=== PATIENT | female | born 1985 | race African-American/Black ===

== ENCOUNTER 2023-10-21 11:40 | Outpatient (REF) | payer MEDICAID, OTHER, SELFPAY ==
[2023-10-21 13:46] LABS: Hemoglobin 11.4 g/dl (12.0-16.0); Mean Corpuscular HGB Conc 32.6 g/dl (31.0-35.0); Mean Corpuscular Hemoglobin 27.5 pg (27.0-33.0); Mean Corpuscular Volume 84.3 fL (80.0-98.0); Mean Platelet Volume 11.1 fL (9.4-12.3); Platelet Count 277 X10*3/uL (160-400); Red Blood Count 4.15 X10*6/uL (4.20-5.50); Red Cell Distribution Width 13.1 % (11.0-16.0); White Blood Count 4.8 X10*3/uL (4.8-10.8)
[2023-10-21 14:25] LABS: Alanine Aminotransferase 9 U/L (0-31); Albumin Level 4.1 g/dL (3.5-5.0); Alkaline Phosphatase 118 U/L (39-117); Aspartate Amino Transferase 14 U/L (5-31); Bilirubin Direct 0.1 mg/dL (0.0-0.5); Bilirubin Total 0.3 mg/dL (0.0-1.0); Total Protein 7.4 g/dL (6.5-8.0)
[2023-10-21 14:41] LABS: TSH reflex Free T4 1.95 uIU/mL (0.32-4.0)
[2023-10-22 12:58] LABS: Immunoglobulin A 248 mg/dL (47-310)
[2023-10-23 21:07] LABS: Transglutaminase IgA <1.0 U/mL
== END 2023-10-21 11:41 | disposition home or self-care (01) ==
LOC: HO.LAB 11:40
PROVIDERS: PCP Nurse Practitioner Family; Visit Provider Internal Medicine
DX: R10.11 Right upper quadrant pain (principal)
CPT/HCPCS: 36415; 80076; 82784; 84443; 85027; 86364

== ENCOUNTER 2023-10-21 11:40 | Outpatient (AMB) | payer OTHER, SELFPAY ==
--- NOTE | 2023-10-21 11:43 | A.OFFVIS_ITS ---
Vital Signs 10/21/23 11:53 Height 5 ft 4 in Weight 160 lb 7.944 oz BMI 27.5 BP 112/80 Blood Pressure Location Lt brachial Position Sitting Pulse 82 Pulse Source Pulse Oximeter Pulse Oximetry (%) 99 Oxygen Delivery Method Room Air Intake Visit Reasons: Lower Abdominal Pains Intake Note: Susie presents in office today for a scheduled initial assessment. CC; Pt reports experiencing lower abdominal pain. Pt reports onset approximately 2 years. Pt reports that their pain is intermittent and idiopathic in nature. Pt denies any additional sx beyond the abdominal pain. Pharmacy Operations Coordinator Required: Yes Pharmacy Operations Coordinator Name: [id number] Feng Accompanied by: Self / Same As Patient Allergies No Known Allergies Allergy (Verified 10/21/23 11:53) HPI Comments Details: 38 y.o F with PMH of who is here for chest pain . Reports started almost 2 years ago. Has had 2 ER visits since Feb. Reports that has 2 distinct complaints. Has sensation of something lodged in the upper throat. This comes and goes, worse with eating food. Sometimes has heartburn with this. In addition, also reports chest pain which she says is present most of the days. Assoc with sensation of difficulty breathing. Unable to identify trigger, goes away on its own when she rests/sits still after an hour. [facility] Medical History (Updated 03/04/24 @ 14:01 by Evelia Salcido RN) Chest pain GERD (gastroesophageal reflux disease) Surgical History (Updated 03/04/24 @ 14:01 by Evelia Salcido RN) Surgical history unknown Family History (Updated 01/25/24 @ 13:37 by Susi Ruiz) Mother No problems noted. Father No problems noted. Social History Are you a primary career development manager to a significant other at home: No Do you presently have visiting nurse or other home services: No Alcohol intake: never Patient Tobacco Use Status: Never used Tobacco Have you been hit, kicked, punched, or otherwise hurt by someone within the past year? If so, by whom?: No Are you DNR?: No Advance Directives: No Advance Directives Information Provided: Yes Recently lost weight without trying: No Nutrition Risks: No Nutritional Risk FDLMP: 02/12/24 Review of Systems Const All systems reviewed & are unremarkable except as noted in HPI and below Physical Exam Vital Signs: Last Vital Signs Pulse 82 10/21/23 11:53 BP 112/80 10/21/23 11:53 Pulse Ox 99 10/21/23 11:53 Oxygen Delivery Method Room Air 10/21/23 11:53 BMI result Body Mass Index 27.5 No apparent distress Nonicteric Abdomen soft, nondistended Alert and oriented x3, normal gait Assessment & Plan Assessment & Plan (1) Postprandial RUQ pain: Code(s): R10.11 - Right upper quadrant pain Category: Medical (2) Shortness of breath: Code(s): R06.02 - Shortness of breath Category: Medical (3) Chest pain: Code(s): R07.9 - Chest pain, unspecified Category: Medical Plan Overall reports two distinct pains - RUQ and epigastric pain as well as chest pain. The chest pain sounds atypical for intraluminal pathology and would recommend cardiac w/up first before proceeding with EGD robson as its triggered by activity and has shortness of breath with it. Ddx for abd pain include PUD, gastritis, celiac, hyperthyroidism, gallstones. Plan: - Labs and US as below - EGD to be set up AFTER pt has been seen by cardiology for atypical chest pain - Start nexium 20 mg BID Follow up after EGD Orders: Orders Liver Panel 10/21/23 R10.11 - Right upper quadrant pain Complete Blood Count no Diff 10/21/23 R10.11 - Right upper quadrant pain TSH reflex Free T4 10/21/23 R10.11 - Right upper quadrant pain Transglutaminase IgA 10/21/23 R10.11 - Right upper quadrant pain Immunoglobulin A 10/21/23 R10.11 - Right upper quadrant pain US abdomen complete 10/21/23 R10.11 - Right upper quadrant pain Referrals Cardiology Referral R07.9 - Chest pain, unspecified, R06.02 - Shortness of breath Medications: New esomeprazole magnesium 20 mg PO BID 60 caps 1RF GERD 30 days Coding Level of Care Code New Pt Level 4 (72545) Diagnoses Postprandial RUQ pain R10.11 Shortness of breath R06.02 Chest pain R07.9
[2023-10-21 11:53] VITALS: BP 112/80; PULSE 82; O2SAT 99; BMI 27.5
== END 2023-10-21 12:31 | disposition home or self-care (01) ==
PROVIDERS: PCP Nurse Practitioner Family; Visit Provider Internal Medicine
DX: R10.11 Right upper quadrant pain (principal); R06.02 Shortness of breath; R07.9 Chest pain, unspecified
CPT/HCPCS: 99499

== ENCOUNTER 2023-11-19 09:40 | Outpatient (REF) | payer OTHER, SELFPAY ==
--- NOTE | ~2023-11-19 | US_ITS ---
EXAMINATION: US ABDOMEN COMPLETE CLINICAL INFORMATION: Right upper quadrant pain. COMPARISON: None available. TECHNIQUE: Real-time imaging of the abdominal viscera. FINDINGS: PANCREAS: Normal. ABDOMINAL AORTA: The proximal, mid, and distal segments are normal in caliber. INFERIOR VENA CAVA: Visualized portions are normal. LIVER: The liver is normal in size. The liver contour is normal. There is mildly increased liver parenchymal echogenicity, consistent with hepatic steatosis. No focal hepatic lesion. There is no intrahepatic biliary duct dilatation seen. GALLBLADDER: The gallbladder is physiologically distended without evidence of stones, sludge, wall thickening or pericholecystic fluid. A 2 mm gallbladder polyp is noted. COMMON BILE DUCT: Normal in caliber measuring 0.2 cm in diameter. RIGHT KIDNEY: Normal. No hydronephrosis. No renal calculi or focal parenchymal lesions. The kidney measures 10.5 cm in maximum dimension. LEFT KIDNEY: Normal. No hydronephrosis. No renal calculi or focal parenchymal lesions. The kidney measures 10.2 cm in maximum dimension. SPLEEN: Normal. The spleen measures 8.5 cm in maximum dimension. FREE FLUID: None. US/US abdomen complete IMPRESSION: 1. A cause for the patient's right upper quadrant pain has not been found. 2. Incidental note made of a 2 mm gallbladder polyp and mild hepatic steatosis. Follow-up recommendations for gallbladder polyps depend on the size of the polyp, the patient's risk factors, and the polyp's appearance: 5 mm or less: If the patient has no risk factors for malignancy, follow-up is recommended at 1, 3, and 5 years. If the patient has risk factors for malignancy, follow-up is recommended at 6 months, 1 year, and 2 years. 6-9 mm: If the patient has no risk factors for malignancy, follow-up is recommended at 6 months, 1 year, and then yearly up to 5 years. 10-14 mm: Follow-up ultrasound is recommended at 6, 12, and 24 months. 15 mm or larger: Surgical consultation is recommended. (from Society of Radiologists in Ultrasound Consensus Conference Recommendations 2021) Electronically signed by: Ferny Kern MD 01/07/2024 01:11 PM [facility]
== END 2023-11-19 09:41 | disposition home or self-care (01) ==
LOC: HO.US 09:40
PROVIDERS: Visit Provider Internal Medicine
DX: R10.11 Right upper quadrant pain (principal)
CPT/HCPCS: 76700

== ENCOUNTER 2024-01-25 11:58 | Outpatient (AMB) | payer OTHER, SELFPAY ==
--- NOTE | 2024-01-25 13:16 | A.OFFVIS_ITS ---
Vital Signs 01/25/24 13:17 Height 5 ft 4 in Weight 154 lb 5.177 oz BMI 26.5 BP 110/60 Blood Pressure Location Lt brachial Position Sitting Pulse 67 Pulse Source Monitor Intake Visit Reasons: new patient pre-op clearance egd dx chest pain Intake Note: CIPRIANO [id number] Program Aide Group Work Required: Yes Program Aide Group Work Name: CIPRIANO Allergies No Known Allergies Allergy (Verified 10/21/23 11:53) Medication List - Last Reconciled 01/25/24 by Tip Ridley MD esomeprazole magnesium 20 mg PO BID 30 days HPI Comments Details: Susie is here for consultation regarding chest pains. She does not have any previous history of coronary disease or myocardial infarction or cardiomyopathy or in fact any other cardiac issues. Discussed with patient using water taxi operator. However, it seems she also speaks Creole. Any case, she understood the conversation very well. She describes a pain/discomfort in the substernal area. Can happen any time. With and without exertion. However, when I repeatedly asked her, she describes different things including sometimes worse with activity but she also has some discomfort when I touch the area and hence variable description. She has also seen GI for possible esophageal cause for this discomfort and it seems there is a pending plan for endoscopy. She has started esomeprazole but no improvement in symptoms. [facility] Medical History GERD (gastroesophageal reflux disease) Family History (Updated 01/25/24 @ 13:37 by Susi Ruiz) Mother No problems noted. Father No problems noted. Social History Alcohol intake: never Patient Tobacco Use Status: Never used Tobacco Review of Systems Const Denies weakness ENT Denies dizziness Card Reports chest pain, Denies chest pain with activity, Denies syncope, Denies rapid heart rate, Denies pedal edema, Denies edema, Denies leg edema, Denies lightheadedness, Reports palpitations, Denies dyspnea, Denies dyspnea on exertion and Denies orthopnea Resp Denies cough, Denies dyspnea and Denies dyspnea on exertion GI Denies hematochezia and Denies change in stool character Musc Denies abnormal gait, Denies muscle cramps, Denies muscle weakness, Denies numbness, Denies radiating pain into limb and Denies tingling Neuro Denies abnormal gait, Denies dizziness, Denies syncope, Denies numbness, Denies tingling and Denies weakness Endo Reports palpitations Physical Exam Vital Signs: Last Vital Signs Pulse 67 01/25/24 13:17 BP 110/60 01/25/24 13:17 BMI result Body Mass Index 26.5 Const General: comfortable and no acute distress Orientation/consciousness: patient oriented x3 HEENT Other: Unremarkable Head: Yes normal to inspection Neck Neck: Yes normal visual inspection Chest Chest palpation & inspection: normal inspection of the chest Resp Auscultation: clear to auscultation bilaterally Cardio Palpation: normal PMI Heart sounds: S1 normal heart sound present, S2 normal heart sound present, no gallops, no murmurs and no rubs GI Palpation (GI): Soft to palpation Back/Spine/Pelvis Other: unremarkable Skin General skin exam: no rashes or lesions noted Neuro General: patient oriented x3 Extrem General: Yes normal to inspection Psych Mental Status: mental status grossly normal Office Procedures EKG Details: EKG with underlying sinus rhythm at 67/Min; no significant ST-T changes and otherwise unremark[place] [id number], Complete Assessment & Plan Assessment & Plan (1) Chest pain: Code(s): R07.9 - Chest pain, unspecified Category: Medical Plan Overall, chest pain of variable description, sometimes exertional and overall atypical. Baseline EKGs unremarkable. Available high sensitivity troponins are within normal limits. We will get an echocardiogram and exercise stress test for further evaluation. Can make an addendum once these are reviewed. Orders: Orders CA echo transthoracic complete Today R07.9 - Chest pain, unspecified CA stress test Today R07.9 - Chest pain, unspecified Coding Level of Care Code New Pt Level 4 (54156) Diagnoses Chest pain R07.9 CPT Codes EKG - CPT: 46451-[id number], Complete ([id number])
[2024-01-25 13:17] VITALS: BP 110/60; PULSE 67; BMI 26.5
== END 2024-01-25 13:49 | disposition home or self-care (01) ==
PROVIDERS: PCP Nurse Practitioner Family; Visit Provider Internal Medicine
DX: R07.9 Chest pain, unspecified (principal)
CPT/HCPCS: 93010; 99204

== ENCOUNTER → 2024-01-25 11:58 | Outpatient (BNVA) | payer OTHER, SELFPAY | PROVIDERS: PCP Nurse Practitioner Family; Visit Provider Internal Medicine | DX: Z01.818 Encounter for other preprocedural examination (principal); R07.9 Chest pain, unspecified | CPT/HCPCS: 93005 ==

== ENCOUNTER → 2024-02-15 08:08 | Outpatient (REF) | payer OTHER, SELFPAY ==
--- NOTE | 2024-02-15 08:11 | CA_ITS ---
Acquisition Time: 2024-02-15 09:04:25 Total Exercise Time: 00:08:14 Test Indications: CP Medications: ESOMEPRAZOLE Protocol: ALLEGRA Max HR: 155 BPM 85% of Pred: 182 BPM Max BP: 152/080 mmHG Max Work Load: 9.6 METS Exercise Stress Test with exercise 8 mins 14 secs of Allegra Protocol, initially held at Stage 1 due to trouble walking on the treadmill, able to slowly increase incline to 14% and speed to 3.2mph, achieving 85% MPHR, with reports of moderate SOB, no chest discomfort, without any arrythmias, with normotensive response to exercise. Without EKG changes meeting criteria for ischemia. In recovery, breathing returned to baseline. Test reviewed with Dr. Johnson. Referred By: Tip Ridley Overread By: Milad Dunn
--- NOTE | 2024-02-15 08:11 | CA_ITS ---
Transthoracic Echocardiogram Patient (Last, First, Middle): Susie Ward, Gender: Female Date of : 1985 Age: 38 Procedure Date: 02/15/2024 Procedure Type: Transthoracic Echocardiogram Location: OP Height: 160.02 cm Weight: 76.66 kg BSA: 1.80 m2 Heart Rate: bpm BP: 110 / 60 mmHg Lna: TIO Referring MD: Tip Ridley MD Symptoms: R07.9 - Chest pain, unspecified Study Quality: Adequate ECG Rhythm: Sinus Conclusions: - The left ventricular systolic function is normal. The calculated ejection fraction is 69% by biplane method. - No obvious valvular pathology seen on this study. Findings Left Ventricle Normal left ventricular cavity size. There is normal left ventricular wall thickness. The left ventricular systolic function is normal. The calculated ejection fraction is 69% by biplane method. There is no evidence of regional wall motion abnormalities. Diastolic function is normal for age. LV peak GLS -21.3%. Right Ventricle Normal right ventricular cavity size and systolic function. Atria Both atria are normal in size. Aortic Valve There is a normal trileaflet aortic valve. There is no aortic valve stenosis. There is no aortic valve regurgitation. Mitral Valve The mitral valve appears normal. There is trace mitral valve regurgitation. There is no mitral valve stenosis. Pulmonic Valve The pulmonic valve is likely normal. Tricuspid Valve Normal tricuspid valve structure. There is trace tricuspid valve regurgitation. There is no evidence of pulmonary hypertension. Great Vessels The asc aorta is normal in size. Venous The inferior vena cava is normal in size and collapses greater than 50% with inspiration. Pericardium/Pleural There is no evidence of pericardial effusion. Prior Study Comparison No prior study available for comparison. Recommendations, Care & Conclusions No obvious valvular pathology seen on this study. Measurements 2D Linear Measurements IVSd: 0.77 0.6-0.9/0.6-1.0 cm LVIDd: 4.40 3.9-5.3/4.2-5.9 cm LVIDd Index: 2.44 2.4-3.2/2.2-3.1 cm/m2 LVIDs: 3.01 2.0-3.6 cm LVPWd: 0.80 0.7-1.1 cm LA Diam: 2.80 2.7-3.8/3.0-4.0 cm LAIDs Index: 1.56 1.5-2.3 cm/m2 LV Mass: 133.25 67-162/88-224 g LV Mass Index: 74.03 43-95/49-115 g/m2 LVOT Diam: 1.80 3.0+(-)1.3 cm 2D Systolic Function EF 4C: 67.70 >55% EF 2C: 66.00 >55% EF BiP: 69.20 >55% Mitral Valve MV Pk E: 0.79 MV PK A: 0.62 MV Decel Time: 256.00 E/A: 1.30 E'Lateral: 13.40 E'Medial: 9.03 E/E' Med: 8.70 E/E' Lat: 5.90 PHT: 75.00 MVA PHT: 2.93 Decel Providence: 3.08 Aortic Valve AoV Pk Fletcher: 1.52 AoV Mn Fletcher: 1.02 AoV VTI: 0.33 AoV Pk Grad: 9.00 Aov Mn Grad: 5.00 GIGI Cont.VTI: 1.90 LVOT LVOT Pk Fletcher: 1.10 LVOT Mn Fletcher: 0.75 LVOT VTI: 0.25 LVOT Pk Grad: 5.00 LVOT Mn Grad: 3.00 LVOT Diam: 1.80 LVOT Area: 2.54 Diastolic Function MV Pk E: 0.79 MV Pk A: 0.62 E/A: 1.30 E'Medial: 9.03 E/E' Med: 8.70 E' Laterial: 13.40 E/E' Lat: 5.90 Right Ventricle TAPSE (mm): 20.40 TVS' Fletcher: 12.50 Tricuspid Valve TR Pk Fletcher: 1.62 TR Pk Grad: 10.00 RA Press: 3.00 RVSP: 13.00 Great Vessels Aorta Sinus of Valsalva: 2.31 2.0-3.[address] Ridge: 1.98 1.7-3.4 cm Ao Asc: 2.30 2.1-3.4 cm Updated in Other Vendor System with Status of Final Tip Ridley MD electronically signed on 02/15/2024 9:19:31 AM with status of Final
== END ==
LOC: HO.CARD 08:08
PROVIDERS: PCP Nurse Practitioner Family; Visit Provider Internal Medicine
DX: R07.9 Chest pain, unspecified (principal)
CPT/HCPCS: 93017; 93306; 93356

== ENCOUNTER → 2024-02-15 08:11 | Outpatient (BNV) | payer OTHER, SELFPAY | PROVIDERS: PCP Nurse Practitioner Family; Visit Provider Internal Medicine | DX: R06.02 Shortness of breath (principal) | CPT/HCPCS: 93016; 93018; 93320; 93325; 93350; 93356 ==

== ENCOUNTER 2024-03-08 08:34 | Day surgery (SDC) | payer OTHER, SELFPAY ==
[2024-03-04 14:00] VITALS: BMI 26.4
--- NOTE | 2024-03-07 11:40 | HO.ANESPROP2 ---
HPI - Anesthesia Eval Consult details Narrative: 38yo F for Upper Endoscopy PMFSH Active Problems Active Problems: All Active Problems Postprandial RUQ pain (Acute) Shortness of breath (Acute) Chest pain (Acute) Past Medical History Medical History (Updated 03/04/24 @ 14:01 by Evelia Salcido RN) Chest pain GERD (gastroesophageal reflux disease) Family History Family History (Updated 01/25/24 @ 13:37 by Susi Ruiz) Mother No problems noted. Father No problems noted. Surgical History Surgical History (Updated 03/04/24 @ 14:01 by Evelia Salcido RN) Surgical history unknown Social History Social History Alcohol intake: never Patient Tobacco Use Status: Never used Tobacco Meds Allergies Allergy/AdvReac Type Severity Reaction Status Date / Time No Known Allergies Allergy Verified 10/21/23 11:53 Exam Height,Weight and Vital Signs: Height 5 ft 4 in Weight 69.853 kg Assessment and Plan Assessment Anesthesia Assessment: Chart Reviewed
[2024-03-08 09:00] VITALS: BMI 25.2
[2024-03-08 09:12] LABS: UPreg QC Valid YES; Urine Pregnancy NEGATIVE (NEGATIVE)
[2024-03-08] MEDS: Lactated Ringers 1,000 ML 100 ML IVCONT (09:12)
--- NOTE | 2024-03-08 09:59 | MHC.SHP ---
Pre-Procedural Eval Section A - 24 Hr Update-Section A only Date of Service: 03/08/24 Section B - Complete if H&P > 30 days Chief Complaint: Right upper quadrant pain, globus sensation Details of Present Illness: Chest pain GERD (gastroesophageal reflux disease) Present Medications: see Short Stay Collaborative assessment Allergies: Allergies Allergy/AdvReac Type Severity Reaction Status Date / Time No Known Allergies Allergy Verified 03/08/24 09:29 Review of Systems Review of Systems Comment: Ten point ROS negative Exam Exam Comment: Gen appear: No acute distress HEENT: no icterus Chest: No overt resp distress Abd: soft, nontender, nondistended Psych: Stable affect, answering questions appropriately Neuro: A/Ox3 noted to move all extremities spontaneously Ext: no peripheral edema Plan Diagnosis/Plan: Unchanged I have reviewed the history and physical and performed a pertinent physical examination on my patient. No changes have occurred unless specified. Time Spent With Patient Time: Total time managing care of this patient today ____ minutes.
--- NOTE | 2024-03-08 10:07 | P.CONAN_ITS ---
[facility] Active Problems Active Problems: All Active Problems Postprandial RUQ pain (Acute) Shortness of breath (Acute) Chest pain (Acute) Past Medical History Medical History Chest pain GERD (gastroesophageal reflux disease) Functional capacity: independent ambulation Patient : No Family History Family History Mother No problems noted. Father No problems noted. Family history of problems with anesthesia: No Surgical History Surgical History No pertinent past surgical history History of Problems with Anesthesia: No Social History Social History Are you a primary laboratory animal care veterinarian to a significant other at home: No Do you presently have visiting nurse or other home services: No Alcohol intake: never Patient Tobacco Use Status: Never used Tobacco Have you been hit, kicked, punched, or otherwise hurt by someone within the past year? If so, by whom?: No Are you DNR?: No Advance Directives: No Advance Directives Information Provided: Yes Recently lost weight without trying: No Nutrition Risks: No Nutritional Risk FDLMP: 02/12/24 Meds Allergies Allergy/AdvReac Type Severity Reaction Status Date / Time No Known Allergies Allergy Verified 03/08/24 09:29 Active Medications: Current Medications Lactated Ringer's (Lr) 1,000 mls @ 100 mls/hr IVCONT .Q10H JAN Last Admin: 03/08/24 09:12 Dose: 100 mls/hr Exam Height,Weight and Vital Signs: Height 5 ft 4 in Weight 66.678 kg Pertinent Lab Results Pertinent Lab Results: Laboratory Tests 03/08/24 09:00 Urine Test NEGATIVE Airway Mallampati Class: I TM Dist: >3cm Neck ROM: Full Heart: RRR Lungs: CTA Assessment and Plan Assessment Anesthesia Assessment: Anesthesia Plan Discussed and Chart Reviewed Final Anesthetic Review Family History of Problems with Anesthesia: No History of Problems with Anesthesia: No NPO: Yes ASA Class: II Final Preanesthetic Review: Meds/Allgs Chart Reviewed, Consent Obtained/Reviewed and Anes Risks/Benef Reviewed Patient Risk: Low Procedure Risk: Low Anesthetic Plan Anesthetic Plan: MAC: Disposition: Standard PACU
[2024-03-08 10:18] VITALS: BP 105/67; PULSE 97; RESP 16; TEMP 36.3
--- NOTE | 2024-03-08 10:23 | P.OP_ITS ---
Operative Note Operative Note Date of Service: 03/08/24 Narrative: Procedure: Esophagogastroduodenoscopy Endoscopist: Sheila Rodarte MD Indication: Abd pain, globus sensation Anesthesia Provider: Ligia Castro MD Anesthesia Type: MAC ?? EGD Procedure:?? The procedure, indications, preparation and potential complications were reviewed with the patient with the help of a plant electrical engineer, who indicated understanding and gave written informed consent to proceed. A physical exam was performed. The endoscope was introduced through the mouth, and advanced to the second part of duodenum. The mucosa was carefully examined on slow withdrawal of the endoscope. The patient tolerated the procedure well. There were no immediate complications.? ? EGD Findings:? * Esophagus:? Normal mucosa noted in the entire esophagus. The Z line was at 35. There was a short hiatal hernia with the diaphragmatic pinch at 37 cm. Middle and lower esophagus forceps biopsies were obtained to rule out eosinophilic esophagitis. * Stomach:? Normal mucosa was noted in the stomach. Retroflexion was performed in the cardia that showed Hill grade 3 hiatal hernia. Random cold forceps gastric biopsies were taken to rule out H Pylori infection. * Duodenum:? Normal mucosa was noted in the whole of the examined duodenum. Cold forceps biopsies were taken from duodenal bulb and second portion of the duodenum to rule out celiac sprue. Additional intervention: A soft tip Savary wire was advanced through the biopsy channel and left in the antrum. The gastroscope was then backed out. Savary Anita bougie was advanced over the guidewire the esophagus was dilated to 18 mm. On relook, no heme or tear was noted. ? EGD Impressions:? * Normal esophagus (biopsy) * Normal stomach (biopsy) * Normal duodenum (biopsy) ?? Recommendations:?? * Follow biopsy results. Our office will call or send a letter with results within 7-10 days. * If H pylori +, patient will be prescribed eradication therapy followed by test of cure. * Avoid NSAIDs. * No obvious narrowing/web/ ring noted to explain patient's complaint of globus sensation. Esophagus was empirically dilated, and can be repeated as needed for recurrence of symptoms. Above has been reviewed with the patient.
[2024-03-08 10:33] VITALS: BP 111/76; PULSE 97; RESP 16
--- NOTE | 2024-03-08 11:11 | HO.POSTANES ---
Post Anesthesia Evaluation Post Anesthesia Evaluation Date of Service: 03/08/24 Vital Signs: Vital Signs Temp Pulse Resp BP O2 Del Method 03/08/24 10:33 97 16 111/76 Room Air 03/08/24 10:18 97.3 F 97 16 105/67 Room Air Anesthesia: Monitored Mental Status: Awake Pain Control: Satisfactory Nausea/Vomiting: None Hydration: Adequate Anesthesia-Related Issues: No Anes. Related Issues
== END 2024-03-08 11:31 | disposition home or self-care (01) ==
PROVIDERS: Nurse Practitioner; Visit Provider Internal Medicine
PROC: 0DJ08ZZ Inspection of Upper Intestinal Tract, Via Natural or Artificial Opening Endoscopic (ICD-10-PCS; CPT 43235; principal; 2024-03-08 10:10)
DX: R10.11 Right upper quadrant pain (principal); R09.A2 Foreign body sensation, throat; R07.9 Chest pain, unspecified; K29.50 Unspecified chronic gastritis without bleeding; B96.81 Helicobacter pylori [H. pylori] as the cause of diseases classified elsewhere; K44.9 Diaphragmatic hernia without obstruction or gangrene
CPT/HCPCS: 43248; 43239; 81025; 88305; 88313; 88342; C1769; J2003; J2704

== ENCOUNTER → 2024-03-08 08:34 | Outpatient (BNV) | payer OTHER, SELFPAY | PROVIDERS: Visit Provider Internal Medicine | DX: R10.11 Right upper quadrant pain (principal); R09.A2 Foreign body sensation, throat | CPT/HCPCS: 43239; 43248 ==

== ENCOUNTER 2024-04-29 09:35 | Outpatient (AMB) | payer OTHER, SELFPAY ==
--- NOTE | 2024-04-29 09:55 | AM.OFFVISNUR ---
Intake Visit Reasons: H Pylori test repeat Allergies No Known Allergies Allergy (Verified 03/18/24 13:02) Nursing Note Patient presents for collection of H Pylori breath test. Patient has been fasting for 1 hour (nothing to eat, drink, no chewing gum or smoking) has not taken any antacid medication for at least 2 weeks and has no allergies to artificial sweeteners.?? Assessment & Plan Assessment & Plan (1) H. pylori infection: Code(s): A04.8 - Other specified bacterial intestinal infections Category: Medical Plan Patient presents for collection of H Pylori breath test. Patient has been fasting for 1 hour (nothing to eat, drink, no chewing gum or smoking) has not taken any antacid medication for at least 2 weeks and has no allergies to artificial sweeteners.???This test checks for an overgrowth of bacteria in your stomach. We all have bacteria but some may have more than others. It is treatable. if the test comes back negative there is nothing else to do. If the test result is positive we will treat you with 2 antibiotics and a medication to decrease the acid in your stomach (PPI) for 2 weeks. Two weeks after you have completed the treatment we will retest you to make sure the overgrowth has resolved. Patient Instructions: Process for specimen collection and reason for testing was explained to the patient. Specimen collection. Patient instructed to take a deep breath and then exhale into the blue bag, filling it up as much as possible. Patient instructed to drink a mixture of water and the artificial sweetener with a straw. A 15 minute wait period was observed. Patient instructed to take a deep breath and then exhale into the pink bag, filling it up as much as possible.? Coding Level of Care Code Established Pt Est Pt Level 1 (80048) Patient Type Established Medical Decision Making Straight Forward Diagnoses H. pylori infection A04.8
--- OUTSIDE RECORDS SUMMARY | 2024-04-29 10:26 | XMS_ITS | Patient Health Record ---
Author Organization [facility] Address [address], [address] [place], [place] [id number] Support Name Relationship Address Phone Ed, Susie Guarantor Unknown [phone] ALLERGIES No Known Allergies REASON FOR REFERRAL No Information IMMUNIZATIONS Vaccine Route Administration Date Status Comme nts PPD ID Intradermal 03/01/2020 Administered SOCIAL HISTORY Tobacco Use: Social History Observation Description Date Details (start date - stop date) Never Smoker NA - NA Sex Assigned At : Social History Observation Description Sex Assigned At Unknown Tobacco Use/Smoking Question Answer Notes Do you smoke? never smoker Alcohol Screen Question Answer Notes Did you have a drink containing alcohol in the p ast year? No Points 0 Interpretation Negative PROBLEMS Problem Type ICD Code Onset Dates Problem Status W/U Status Risk SNOMED Code Notes Problem Overweight (BMI 25.0-29.9) (E66.3) Active confirmed [id number] PLAN OF TREATMENT No Information MEDICAL (GENERAL) HISTORY Surgical History Surgery Date(Month/Year)
--- OUTSIDE RECORDS SUMMARY | 2024-04-29 10:26 | XMS_ITS | Clinical Summary ---
Author Organization [facility] Address [address] [place] [address] Care Team Providers Care Mirror Framer Name Role Phone Edmond Kumar NP Primary Care Provider Source Comments PLEASE NOTE, if this patient is a minor, it may be UNLAWFUL to discuss sensitive information that is contained in these records (such as FAMILY PLANNING, MENTAL HEALTH or SUBSTANCE ABUSE) with the minor patient's parent or other person without the patient's specific authorization.[facility] Allergies No known active allergies Medications famotidine (PEPCID) 20 mg tablet Take 1 Tablet by mouth 2 (two) times daily 60 Tablet 5 01/31/2021 Active ibuprofen 800 mg tablet Take 1 Tablet by mouth 3 (three) times daily as needed for pain 100 Tablet 1 01/31/2021 Active polyvinyl alcohol (ARTIFICIAL TEARS, POLYVIN ALC,) 1.4 % ophthalmic solutionIndicat ions:Dry eye syndrome of both eyes Place 1 Drop into both eyes 4 times a day 15 mL 11 04/23/2021 Active lidocaine (LIDOCAINE VISCOUS) 2 % solution Take 5 mL by mouth as needed for pain 100 mL 1 11/22/2021 Active acetaminophen (TYLENOL) 500 mg tablet Take 2 Tablets by mouth every 6 (six) hours as needed for pain 60 Tablet 1 11/22/2021 Active ibuprofen 600 mg tablet Take 1 Tablet by mouth 3 (three) times daily as needed for pain 30 Tablet 1 11/22/2021 Active Active Problems No known active problems Immunizations Name Administration Dates Next Due INFLUENZA, SEASONAL, INJECTABLE, PRESERVATIVE FR EE 01/31/2021,01/06/2020 PFIZER COVID VACCINE, PURPLE CAP, 12+ 12/07/2020 ,11/12/2020 PPD 10/23/2021 TDAP 01/06/2020 Family History Medical History Relation Name Comments No Known Problems Brother No Known Problems Daughter No Known Problems Father No Known Problems Maternal Aunt No Known Problems Maternal Grandfather No Known Problems Maternal Grandmother No Known Problems Maternal Uncle No Known Problems Mother No Known Problems Other No Known Problems Paternal Aunt No Known Problems Paternal Grandfather No Known Problems Paternal Grandmother No Known Problems Paternal Uncle No Known Problems Sister No Known Problems Son Amblyopia Neg Blindness Neg Cancer Neg Cataracts Neg Diabetes Neg Fuchs' Dystrophy Neg Glaucoma Neg Hypertension Neg Macular degeneration Neg Retinal detachment Neg Strabismus Neg Stroke Neg Thyroid Disease Neg Relation Name Status Comments Brother Daughter Father Maternal Aunt Maternal Grandfather Maternal Grandmother Maternal Uncle Mother Other Paternal Aunt Paternal Grandfather Paternal Grandmother Paternal Uncle Sister Son Social History Tobacco Use Types Packs/Day Years Used Date Smoking Tobacco: Never Smokeless Tobacco: Never Social Connections Answer Date Recorded Social Connections and Isolation 0 01/03/2020 Financial Resource Strain Answer Date R ecorded Financial Resource Strain 0 2019 Stress Answer Date Recorded Stress 0 01/03/2020 Physical Activity Answer Date Recorded Physical Activity 0 01/03/2020 Food Insecurity Answer Date Recorded Food 0 01/03/2020 Transportation Needs Answer Date Record ed Transportation 0 01/03/2020 Housing Stability Answer Date Recorded Housing 0 01/03/2020 Safety and Environment Answer Date Jaron rded Safety 0 01/03/2020 Utilities Answer Date Recorded Utilities 0 01/03/2020 Employment Answer Date Recorded Employment 0 01/03/2020 Comments No Sex and Gender Information Value Date Recorded Sex Assigned at Female 10/23/2021 6:37 AM PDT Legal Sex Female 9:33 AM PDT Gender Identity Female 10/23/2021 6:37 AM PDT Sexual Orientation Don't know 10/23/2021 6: 37 AM PDT Last Filed Vital Signs Vital Sign Reading Time Taken Comments Blood Pressure 107/73 11/22/2021 10:57 AM EDT Pulse 76 11/22/2021 10:57 AM EDT Temperature 36.8 ??C (98.3 ??F) 11/22/2021 10:57 AM E DT Respiratory Rate - - Oxygen Saturation 100% 11/22/2021 10:57 AM EDT Inhaled Oxygen Concentration - - Weight 66.2 kg (146 lb) 11/22/2021 10:57 AM EDT Height 154.9 cm (5' 1 ) 01/31/2021 9:58 AM EST Body Mass Index 27.59 01/31/2021 9:58 AM EST Plan of Treatment Health Maintenance Due Date Last Done Comments HPV Screening 1985 Tobacco Screening 1985 Relationship Safety Screening/Counseling 2000 Annual Preventive Care Visit 01/05/2021 01/06/2020 Hypertension Screening (#1) 11/22/2022 Diabetes Screening 01/05/2023 01/06/2020 Pap Smear 01/05/2023 01/06/2020 [id number] ( season) 2023 021, 11/12/2020 Imm-Influenza (#1) 2023 01/31/2021, 01/06/2020 Alcohol and Drug Screen 02/24/2024 Depression Annual Screen 02/24/2024 Cervical Cancer Screening 01/05/2025 Pap + HPV 01/05/2025 01/06/2020 Imm-DTaP/Tdap/Td (2 - Td or Tdap) 01/05/2030 020 HIV Screening Completed 01/06/2020 Hepatitis B Screening Completed 01/06/2020, 020 Hepatitis C Screening Completed 01/06/2020 Cervical Ablation/Cold-Knife Conization Discontinued Cervical Cryotherapy Discontinued Colposcopy Discontinued Endometrial Biopsy Discontinued Excision/Leep Discontinued HPV Genotyping Discontinued Vaginal Pap Discontinued Vulvoscopy Discontinued Procedures Procedure Name Priority Date/Time Associated Diagnosis Comments HIV 4TH GEN Routine 01/06/2020 5:48 PM EST Well adult exam HEP B SURFACE AG (HBSAG) Routine 01/06/2020 5:48 PM EST Well adult exam HEP C AB Routine 01/06/2020 5:48 PM EST Well adult exam HEMOGLOBIN GLYCOSYLATED A1C Routine 01/06/2020 5:48 PM EST Well adult exam THIN PREP IMAGE PAP + HPV RNA (Q) Routine 01/06/2020 4:36 PM EST Well adult exam from Last 3 Months or Most Recently Relevant to Health Maintenance Results * HIV 4TH GEN (01/06/2020 5:48 PM EST) CHIV Nonreactive Nonreactive [facility] Comment:testing run 01-06-20 Serum Blood / Unknown 01/06/2020 5 :48 PM EST 01/06/2020 5:48 PM EST [facility] - 01/07/2020 9:58 AM EST patient is not fasting. Edmond Kumar NP LAB - BLOOD DRAW Final Resu lt [facility] CLIA# [id number] [address] [place] [address], [place] [phone] * HEP C AB (01/06/2020 5:48 PM EST) HEPATITIS C AB Nonreactive Nonreactive [facility] Comment:testing run 01-06-20 Serum Blood / Unknown 01/06/2020 5 :48 PM EST 01/06/2020 5:48 PM EST [facility] - 01/07/2020 9:58 AM EST patient is not fasting. Edmond Kumar NP LAB - BLOOD DRAW Final Resu lt [facility] CLIA# [id number] [address] [place] [address], [place] [phone] * HEP B SURFACE AG (HBSAG) (01/06/2020 5:48 PM EST) HEPATITIS B SURFACE AG Nonreactive Nonreactive [facility] Serum Blood / Unknown 01/06/2020 5 :48 PM EST 01/06/2020 5:48 PM EST [facility] - 01/06/2020 10:53 PM EST patient is not fasting. Edmond Bouloute LOT ATTENDANT LAB - BLOOD DRAW Final Resu lt Performing Organization Address [facility] Co de Phone Number [facility] CLIA# [id number] [address] [place] [address], * HEMOGLOBIN, GLYCOSYLATED (A1C) (01/06/2020 5:48 PM EST) HB1C 4.9 4.8 - 5.6 % [facility] Comment: <5.7%: ??Normal Range 5.7-6.4%: ??Increased risk for Diabetes >6.5%: Diabetic Range Lowering Hemoglobin A1C to below or around 7% has been shown to reduce microvascular and neuropathic complications of Type 1 and Type 2 Diabetes. ??Therefore, for microvascular prevention, the Hemoglobin A1C goal for non- adults in general is less than 7% (2010 ADA) MEAN GLUC 94 mg/dL [facility] Whole blood specimen (specimen) Blood / Unknown 01/06/2020 5:48 PM EST 01/06/2020 5:48 PM EST Narrative [facility] - 01/06/2020 7:34 PM EST patient is not fasting. Edmond Kumar LOT ATTENDANT LAB - BLOOD DRAW Final Resu lt Performing Organization Address [facility] Co de Phone Number [facility] CLIA# [id number] [address] [place] [address], * THIN PREP IMAGE PAP + HPV RNA [id number] (Q) (01/06/2020 4:36 PM EST) CLINICAL INFORMATION SEE NOTE [facility]) Comment:None given LMP SEE NOTE [facility]) Comment:12/21/2019 PREV. PAP SEE NOTE [facility]) Comment:NONE GIVEN PREV. BX NONE GIVEN [facility] ( [facility]) SOURCE SEE NOTE [facility]) Comment:Cervix STATEMENT OF ADEQUACY SEE NOTE [facility]) Comment: Satisfactory for evaluation. Endocervical/transformation zone component present. INTERPRETATION/RESU LT SEE NOTE [facility]) Comment:Negative for intraep ithelial lesion or malignancy. COMMENT SEE NOTE [facility]) Comment: This case could not be evaluated with computer assisted technology. The slide was manually screened according to routine procedures. EDUCATIONAL PROGRAMMING DIRECTOR SEE NOTE [facility] ([facility]) Comment: LINDA, CT(ASCP) CT screening location: [address] ??[address] REVIEW EDUCATIONAL PROGRAMMING DIRECTOR SEE NOTE [facility]) Comment: PERRY, CT(ASCP) CT screening location: [address] ??[address] COMMENT SEE NOTE [facility]) Comment: EXPLANATORY NOTE: The Pap is a screening test for cervical cancer. It is not a diagnostic test and is subject to false negative and false positive results. It is most reliable when a satisfactory sample, regularly obtained, is submitted with relevant clinical findings and history, and when the Pap result is evaluated along with historic and current clinical information. HPV MRNA E6/E7 Not Detected Not Detected [facility]) Comment: This test was performed using the APTIMA HPV Assay ([employer] This assay detects E6/E7 viral messenger RNA (mRNA) from 14 high-risk HPV types (16,18,31,33,35,39,45,51,52,56,58,59,66,68). The analytical performance characteristics of this assay have been determined by [facility]. The modifications have not been cleared or approved by the FDA. This assay has been validated pursuant to the CLIA regulations and is used for clinical purposes. Cytologic material (specimen) Cervix uteri structure / Unknown 01/06/2020 4:36 PM EST 01/06/2020 7:40 PM EST Narrative [facility]) - 01/13/2020 12:53 PM EST [facility] Testing performed at: NL2, [facility], [address] [place] [address], [address], [place], [address], [employer] Administrator: Mikel Valdes [facility] Collection Date/Time: [id number] [facility] Results Received Date/Time: [id number] [facility] Reported Date/Time: Gestational Age (if ): Unknown Patient's last menstrual period was 12/21/2019 (approximate). us Edmond Kumar NP LAB - NO BLOOD DRAW Final [facility] Organization Address City/State/ZIP Co de Phone Number [facility] ([facility] [employer]) [address] [facility] 3rd [facility] CLIA #[id number] [place] [address], [place] from Last 3 Months or Most Recently Relevant to Health Maintenance [place]AF[place]Y [place] DENT[place] Care Teams Mirror Framer Relationship Specialty Start Date End Date Edmond Kumar NP [address] [place] [id number] PCP - General LOT ATTENDANT Nurse Practitioner 01/06/20
== END 2024-04-29 10:00 | disposition home or self-care (01) ==
PROVIDERS: PCP Nurse Practitioner Family; Visit Provider Internal Medicine
DX: A04.8 Other specified bacterial intestinal infections (principal)

== ENCOUNTER → 2024-04-29 09:35 | Outpatient (BNVA) | payer OTHER, SELFPAY | PROVIDERS: PCP Nurse Practitioner Family; Visit Provider Internal Medicine | DX: A04.8 Other specified bacterial intestinal infections (principal) | CPT/HCPCS: 99211 ==

== ENCOUNTER 2024-04-29 16:45 | Outpatient (REF) | payer OTHER, SELFPAY ==
--- OUTSIDE RECORDS SUMMARY | 2024-05-02 18:17 | XMS_ITS | Patient Health Record ---
Author Organization [facility] Address [address], [address] [place], [place] [id number] Support Name Relationship Address Phone Ed, Susie Guarantor Unknown [phone] ALLERGIES No Known Allergies REASON FOR REFERRAL [...] Problem Overweight (BMI 25.0-29.9) (E66.3) Active confirmed [id number] PLAN OF TREATMENT No Information MEDICAL (GENERAL) HISTORY Surgical History Surgery Date(Month/Year)
--- OUTSIDE RECORDS SUMMARY | 2024-05-02 18:17 | XMS_ITS | Clinical Summary ---
Author Organization [facility] Address [address] [place] [address] Care Team Providers Care Pals Specialist Name Role Phone Edmond Kumar NP Primary [...] Screening 01/05/2023 01/06/2020 Pap Smear 01/05/2023 01/06/2020 [id number] ( season) 2023 021, 11/12/2020 Imm-Influenza (#1) [...] (01/06/2020 5:48 PM EST) CHIV Nonreactive Nonreactive [facility] Comment:testing run 01-06-20 Serum Blood / Unknown 01/06/2020 5 :48 PM EST 01/06/2020 5:48 PM EST [facility] - 01/07/2020 9:58 AM EST patient is not fasting. Edmond Kumar NP LAB - BLOOD DRAW Final Resu lt [facility] CLIA# [id number] [address] [place] [address], [place] [phone] * HEP C AB (01/06/2020 5:48 PM EST) HEPATITIS C AB Nonreactive Nonreactive [facility] Comment:testing run 01-06-20 Serum Blood / Unknown 01/06/2020 5 :48 PM EST 01/06/2020 5:48 PM EST [facility] - 01/07/2020 9:58 AM EST patient is not fasting. Edmond Kumar NP LAB - BLOOD DRAW Final Resu lt [facility] CLIA# [id number] [address] [place] [address], [place] [phone] * HEP B SURFACE AG (HBSAG) (01/06/2020 5:48 PM EST) HEPATITIS B SURFACE AG Nonreactive Nonreactive [facility] Serum Blood / Unknown 01/06/2020 5 :48 PM EST 01/06/2020 5:48 PM EST [facility] - 01/06/2020 10:53 PM EST patient is not fasting. Edmond Bouloute BRICK GRADER LAB - BLOOD DRAW Final Resu lt Performing Organization Address [facility] Co de Phone Number [facility] CLIA# [id number] [address] [place] [address], * HEMOGLOBIN, GLYCOSYLATED (A1C) (01/06/2020 5:48 PM EST) HB1C 4.9 4.8 - 5.6 % [facility] Comment: <5.7%: ??Normal Range 5.7-6.4%: ??Increased risk for Diabetes >6.5%: Diabetic Range Lowering Hemoglobin A1C to below or around 7% has been shown to reduce microvascular and neuropathic complications of Type 1 and Type 2 Diabetes. ??Therefore, for microvascular prevention, the Hemoglobin A1C goal for non- adults in general is less than 7% (2010 ADA) MEAN GLUC 94 mg/dL [facility] Whole blood specimen (specimen) Blood / Unknown 01/06/2020 5:48 PM EST 01/06/2020 5:48 PM EST Narrative [facility] - 01/06/2020 7:34 PM EST patient is not fasting. Edmond Kumar BRICK GRADER LAB - BLOOD DRAW Final Resu lt Performing Organization Address [facility] Co de Phone Number [facility] CLIA# [id number] [address] [place] [address], * THIN PREP IMAGE PAP + HPV RNA [id number] (Q) (01/06/2020 4:36 PM EST) CLINICAL INFORMATION SEE NOTE [facility]) Comment:None given LMP SEE NOTE [facility]) Comment:12/21/2019 PREV. PAP SEE NOTE [facility]) Comment:NONE GIVEN PREV. BX NONE GIVEN [facility] ( [facility]) SOURCE SEE NOTE [facility]) Comment:Cervix STATEMENT OF ADEQUACY SEE NOTE [facility]) Comment: Satisfactory for evaluation. Endocervical/transformation zone component present. INTERPRETATION/RESU LT SEE NOTE [facility]) Comment:Negative for intraep ithelial lesion or malignancy. COMMENT SEE NOTE [facility]) Comment: This case could not be evaluated with computer assisted technology. The slide was manually screened according to routine procedures. DUAL HOSE CEMENTER SEE NOTE [facility] ([facility]) Comment: LINDA, CT(ASCP) CT screening location: [address] ??[address] REVIEW DUAL HOSE CEMENTER SEE NOTE [facility] ([facility]) Comment: PERRY, CT(ASCP) CT screening location: [address] ??[address] COMMENT SEE NOTE [facility]) Comment: EXPLANATORY NOTE: The Pap is [...] E6/E7 Not Detected Not Detected [facility]) Comment: This test was performed using the APTIMA HPV Assay ([employer] This assay detects E6/E7 viral messenger RNA (mRNA) from 14 high-risk HPV types (16,18,31,33,35,39,45,51,52,56,58,59,66,68). The analytical performance characteristics of this assay have been determined by [facility]. The modifications have not been cleared or approved by the FDA. This assay has been validated pursuant to the CLIA regulations and is used for clinical purposes. Cytologic material (specimen) Cervix uteri structure / Unknown 01/06/2020 4:36 PM EST 01/06/2020 7:40 PM EST Narrative [facility]) - 01/13/2020 12:53 PM EST [facility] Testing performed at: [facility], [facility], [address] [place] [address], [address], [place], [address], Child Care Associate Teacher: Mikel Valdes [facility] Collection Date/Time: [id number] [facility] Results Received Date/Time: [id number] [facility] Reported Date/Time: Gestational Age (if ): Unknown Patient's last menstrual period was 12/21/2019 (approximate). us Edmond Kumar NP LAB - NO BLOOD DRAW Final R esult [facility] Organization Address City/State/ZIP Co de Phone Number [facility] ([facility] [employer]) [address] [facility] [facility] [address] [facility] CLIA #[id number] [place] [address], [place] from Last 3 Months or Most Recently Relevant to Health Maintenance Insurance [place] SAFETY [place] DENTAL Care Teams Pals Specialist Relationship Specialty Start Date End Date Edmond Kumar NP [address] [place] [phone] PCP - General BRICK GRADER Nurse Practitioner 01/06/20
[2024-05-03 13:50] LABS: H Pylori Breath Test Negative (Negative)
== END 2024-04-29 16:46 | disposition home or self-care (01) ==
LOC: HO.LNP 16:45
PROVIDERS: Visit Provider Internal Medicine
DX: A04.8 Other specified bacterial intestinal infections (principal)
CPT/HCPCS: 83013